=== PATIENT | male | born 1970 | race Two or more races ===

== ENCOUNTER 2023-05-10 10:52 | Emergency (ER) | payer OTHER ==
[~2023-05-10] VITALS: Ht 185.4 cm; Wt 87.1 kg
[2023-05-10 13:29] LABS: HEMOGLOBIN 13.7 g/dL (13-16.00); MEAN CORPUSCULAR HEMOGLOBIN 29.8 pg (27.00-32.0); PLATELET COUNT 225 K/uL (150-450); RED BLOOD COUNT 4.58 M/uL (4.00-6.00); RED CELL DISTRIBUTION WIDTH 12.7 % (11.5-14.5)
[2023-05-10 13:49] LABS: CALCIUM 9.7 mg/dL (8.5-10.1); CREATININE SERUM 0.57 mg/dL (0.70-1.30); GFR 151.31; POTASSIUM 4.01 mEq/L (3.5-5.1)
== END 2023-05-10 15:12 | disposition home or self-care (01) ==
LOC: ER 10:52
PROVIDERS: Emergency Medicine
DX: R07.89 Other chest pain (principal)

== ENCOUNTER 2024-04-10 10:53 | Outpatient (CLI) | payer OTHER | END 2024-04-10 11:07 | disposition home or self-care (01) | LOC: SONOGRAMA 10:53 | PROVIDERS: ATTEND Physical Medicine & Rehabilitation | DX: M75.52 Bursitis of left shoulder (principal); M75.22 Bicipital tendinitis, left shoulder; M62.830 Muscle spasm of back ==

== ENCOUNTER 2024-05-17 13:23 | Outpatient (CLI) | payer OTHER | END 2024-05-17 13:26 | disposition home or self-care (01) | LOC: RAD 13:23 | PROVIDERS: ATTEND Physical Medicine & Rehabilitation | DX: M79.641 Pain in right hand (principal) ==

== ENCOUNTER 2024-05-23 15:04 | Outpatient (CLI) | payer OTHER | END 2024-05-23 15:07 | disposition home or self-care (01) | LOC: RAD 15:04 | PROVIDERS: ATTEND Physical Medicine & Rehabilitation | DX: M54.2 Cervicalgia (principal); M25.512 Pain in left shoulder ==

== ENCOUNTER 2024-07-16 07:46 | Outpatient (CLI) | payer OTHER | END 2024-07-16 07:50 | disposition home or self-care (01) | LOC: SONOGRAMA 07:46 | PROVIDERS: ATTEND Internal Medicine Endocrinology, Diabetes & Metabolism | DX: K75.81 Nonalcoholic steatohepatitis (NASH) (principal); R74.01 Elevation of levels of liver transaminase levels ==